=== PATIENT | female | born 1980 | race Two or more races ===

== ENCOUNTER 2018-07-27 23:32 | Emergency (ER) | payer SELFPAY ==
[~2018-07-27] VITALS: Ht 157.5 cm; Wt 68.0 kg
--- NOTE | 2018-07-27 23:31 | Emergency Room Report ---
History of Present Illness General Chief Complaint: Hypertension Source: Patient Present Illness HPI Patient is a 38-year-old female presented after increased headache and nausea. Patient had prior history of hypertension and reportedly had been taking clonidine but had missed several doses. Patient was noted to have markedly elevated blood pressure when checked by EMS and she took a clonidine pill. Patient reports having some increased right-sided headache. She had not been vomiting. Allergies: Coded Allergies: No Known Allergies (Unverified , 07/27/18) Patient History Now: No Nursing Documentation-PMH Hx Hypertension: Yes Hx Dialysis: Yes - Kidney stone History Of Psychiatric Problem: Yes - anxiety Physical Exam Vital Signs Date Time Temp Pulse Resp B/P (MAP) Pulse Ox O2 Delivery O2 Flow Rate FiO2 07/27/18 23:27 98.4 106 21 223/125 95 Room Air Medical Decision Making Diagnostic Impression: Primary Impression: Hypertension Additional Impressions: Renal insufficiency Nonadherence to medication ER Course . She presented for headache. Differential diagnosis include was not limited to aneurysm, CVA, hypertensive crisis among others. Because of complexity of patient's case laboratory testing and imaging studies were ordered. Patient reports having prior history of renal disease and states that she has been told she has 10% renal function. Patient was noted to have laboratory testing which showed elevated BUN/creatinine. Patient's potassium is normal. Patient had spontaneous improvement in her blood pressure after she had taken clonidine at home. Patient reports having improvement in her headache. Patient was offered admission which she declined and stated she want to go home. CT imaging of the head read by radiology showed no evidence of acute intracranial hemorrhage. Patient was advised to remain compliant with her medications and to follow-up with her previously scheduled nephrology appointment. Labs Test 07/27/18 23:36 07/28/18 00:00 White Blood Count 9.4 K/UL (4.8-10.8) Red Blood Count 3.50 M/UL (4.20-5.40) Hemoglobin 10.6 G/DL (12.0-16.0) Hematocrit 31.9 % (37.0-47.0) Mean Corpuscular Volume 91 FL (80-99) Mean Corpuscular Hemoglobin 30.2 PG (27.0-31.0) Mean Corpuscular Hemoglobin Concent 33.2 G/DL (32.0-36.0) Red Cell Distribution Width 12.8 % (11.6-14.8) Platelet Count 217 K/UL (150-450) Mean Platelet Volume 7.9 FL (6.5-10.1) Neutrophils (%) (Auto) 59.1 % (45.0-75.0) Lymphocytes (%) (Auto) 30.3 % (20.0-45.0) Monocytes (%) (Auto) 7.0 % (1.0-10.0) Eosinophils (%) (Auto) 2.6 % (0.0-3.0) Basophils (%) (Auto) 1.0 % (0.0-2.0) Prothrombin Time 10.0 SEC (9.30-11.50) Prothromb Time International Ratio 0.9 (0.9-1.1) Activated Partial Thromboplast Time 26 SEC (23-33) Sodium Level 141 MMOL/L (136-145) Potassium Level 3.4 MMOL/L (3.5-5.1) Chloride Level 107 MMOL/L (98-107) Carbon Dioxide Level 19 MMOL/L (21-32) Anion Gap 15 mmol/L (5-15) Blood Urea Nitrogen 49 mg/dL (7-18) Creatinine 5.5 MG/DL (0.55-1.30) Estimat Glomerular Filtration Rate 8.6 mL/min (>60) Glucose Level 106 MG/DL (74-106) Calcium Level 8.3 MG/DL (8.5-10.1) Total Bilirubin 0.2 MG/DL (0.2-1.0) Aspartate Amino Transf (AST/SGOT) 13 U/L (15-37) Alanine Aminotransferase (ALT/SGPT) 16 U/L (12-78) Alkaline Phosphatase 136 U/L (46-116) Troponin I 0.000 ng/mL (0.000-0.056) Total Protein 7.7 G/DL (6.4-8.2) Albumin 3.4 G/DL (3.4-5.0) Globulin 4.3 g/dL Albumin/Globulin Ratio 0.8 (1.0-2.7) Urine Color Pale yellow Urine Appearance Clear Urine pH 7 (4.5-8.0) Urine Specific [place] 1.005 (1.005-1.035) Urine Protein 3+ (NEGATIVE) Urine Glucose (UA) 1+ (NEGATIVE) Urine Ketones Negative (NEGATIVE) Urine Blood 2+ (NEGATIVE) Urine Nitrite Negative (NEGATIVE) Urine Bilirubin Negative (NEGATIVE) Urine Urobilinogen Normal MG/DL (0.0-1.0) Urine Leukocyte Esterase 1+ (NEGATIVE) Urine RBC 2-4 /HPF (0 - 2) Urine WBC 2-4 /HPF (0 - 2) Urine Squamous Epithelial Cells Few /LPF (NONE/OCC) Urine Bacteria Few /HPF (NONE) Last Vital Signs Date Time Temp Pulse Resp B/P (MAP) Pulse Ox O2 Delivery O2 Flow Rate FiO2 07/27/18 23:27 98.4 106 21 223/125 95 Room Air Status: improved Disposition: HOME, SELF-CARE Condition: Stable Ivan Lombardi MD Jul 27, 2018 23:31
--- NOTE | 2018-07-27 23:32 | NUR ---
ED Nurse Note: pt brought in by [facility] c/o headache and high blood pressure, per EMS pt's sys BP above 200. pt AA&ox4, gcs=15, no dysphagia or facial drooping noted, cms intact, strength +5 BUE, skin warm and dry, resp even and unlabored on RA, -n/v/d, no vision or hearing problems, ambulates w/ steady gait, Noted BP 180/101, ERMD at the bedside. will cont monitor.
[2018-07-27 23:44] VITALS: BP 180/101
[2018-07-27 23:59] LABS: EOSINOPHILS % (AUTO) 2.6 % (0.0-3.0); HEMATOCRIT 31.9 % (37.0-47.0); HEMOGLOBIN 10.6 G/DL (12.0-16.0); LYMPHOCYTES % (AUTO) 30.3 % (20.0-45.0); MEAN CORPUSCULAR VOLUME 91 FL (80-99); NEUTROPHILS % (AUTO) 59.1 % (45.0-75.0); PLATELET COUNT 217 K/UL (150-450); RED CELL DISTRIBUTION WIDTH 12.8 % (11.6-14.8); WHITE BLOOD COUNT 9.4 K/UL (4.8-10.8)
[2018-07-28 00:03] LABS: INR 0.9 (0.9-1.1)
[2018-07-28 00:05] LABS: ANION GAP 15 mmol/L (5-15); BLOOD UREA NITROGEN 49 mg/dL (7-18); CALCIUM 8.3 MG/DL (8.5-10.1); CARBON DIOXIDE 19 MMOL/L (21-32); CHLORIDE 107 MMOL/L (98-107); CREATININE 5.5 MG/DL (0.55-1.30); POTASSIUM 3.4 MMOL/L (3.5-5.1); SODIUM 141 MMOL/L (136-145)
[2018-07-28 00:09] LABS: ALANINE AMINOTRANSFERASE 16 U/L (12-78); ALBUMIN 3.4 G/DL (3.4-5.0); ALBUMIN/GLOBULIN RATIO 0.8 (1.0-2.7); ALKALINE PHOSPHATASE 136 U/L (46-116); ASPARTATE AMINO TRANSFERASE 13 U/L (15-37); BILIRUBIN,TOTAL 0.2 MG/DL (0.2-1.0)
[2018-07-28 00:15] LABS: APPEARANCE,URINE CLEAR; BILIRUBIN, URINE NEGATIVE (NEGATIVE); COLOR,URINE PALE YELLOW; GLUCOSE, URINE (UA) 1+ (NEGATIVE); KETONES,URINE NEGATIVE (NEGATIVE); LEUKOCYTE ESTERASE ,URINE 1+ (NEGATIVE); NITRITE,URINE NEGATIVE (NEGATIVE); PH,URINE 7 (4.5-8.0); PROTEIN,URINE 3+ (NEGATIVE); UROBILINOGEN,URINE NORMAL MG/DL (0.0-1.0)
[2018-07-28 01:01] VITALS: BP 160/101
--- NOTE | 2018-07-28 01:02 | NUR ---
ED Nurse Note: pt cleared to be d/c per ERMD, pt discharge and aftercare instruction provided, pt education done via discussion and handout, pt advised to follow up with pcp to continue care or return to ed if sx worsen or new sx develop, pt verbalized understanding and agrees with plan, pt vss, ambulatory w/ steady gait, wristband and iv d/c, pt left w/ all belongings and accompanied by .
--- NOTE | 2018-07-28 11:10 | Diagnostic Imaging Report ---
Indications: Headache Technique: Spiral acquisitions obtained through the brain. Angled axial and coronal 5 x 5 mm slices were reconstructed. Total dose length product 1386.64 mGycm. CTDI vol(s) 70.38 mGy. Dose reduction achieved using automated exposure control Comparison: None. Findings: No acute intracranial hemorrhage or edema, mass effect, nor midline shift. Normal farrell-white differentiation. Intact calvarium. Visualized orbits and sinuses are unremarkable. The mastoids are clear. Impression: Negative This agrees with the preliminary interpretation provided overnight by [facility]eradiology service. The CT scanner at [facility] is accredited by the [employer] and the scans are performed using protocols designed to limit radiation exposure to as low as reasonably achievable to attain images of sufficient resolution adequate for diagnostic evaluation.
== END 2018-07-28 01:01 | disposition home or self-care (01) ==
LOC: EDBD 23:32 → EMR 23:48
DX: I10 Essential (primary) hypertension (principal); N28.9 Disorder of kidney and ureter, unspecified; Z91.19 Patient's noncompliance with other medical treatment and regimen; F41.9 Anxiety disorder, unspecified; Z87.442 Personal history of urinary calculi
CPT/HCPCS: 36415; 70450; 80053; 81001; 84484; 85025; 85610; 85730; 93005; 99284